=== PATIENT | male | born 2000 | race Caucasian/White ===

== ENCOUNTER 2020-06-12 16:19 | Emergency (ER) | payer OTHER ==
[~2020-06-12] VITALS: Ht 188 cm; Wt 81.8 kg
[2020-06-12] MEDS ORDERED: IBUPROFEN 600MG TAB PO ONE (16:45)
--- NOTE | 2020-06-12 18:02 | REP ---
INDICATION: trauma COMPARISON: None. TECHNIQUE: Frontal view of the pelvis with neutral and frog lateral views of the right hip. FINDINGS: Pelvis and hips are symmetric and intact. No acute fracture or dislocation. Surrounding soft tissues are unremarkable. No subcutaneous emphysema or foreign body. IMPRESSION: Normal pelvis and right hip series. No acute fracture or dislocation. <Electronically signed by Geoff Arambula > 06/12/20 [id number]
--- NOTE | 2020-06-12 18:02 | REP ---
INDICATION: trauma COMPARISON: None. TECHNIQUE: AP, lateral, bilateral oblique, and coned-down views of the lumbar spine. FINDINGS: Alignment and lordosis maintained. Vertebral bodies are intact. Disc spaces are relatively normal/age-appropriate. No acute fracture/compression injury or subluxation. No obvious spondylolysis or spondylolisthesis.. IMPRESSION: Normal Lumbosacral Spine series. No acute fracture/compression injury or subluxation. <Electronically signed by Geoff Arambula > 06/12/20 [id number]
[2020-06-12 18:45] VITALS: BP 149/74
== END 2020-06-12 18:48 | disposition home or self-care (01) ==
LOC: M ED 16:19 → EDBD 16:19 → M ED 18:48
DX: S70.01XA Contusion of right hip, initial encounter (principal); W01.0XXA Fall on same level from slipping, tripping and stumbling without subsequent striking against object, initial encounter; Y92.89 Other specified places as the place of occurrence of the external cause; Y99.0 Civilian activity done for income or pay; F17.210 Nicotine dependence, cigarettes, uncomplicated

== ENCOUNTER 2021-09-24 12:51 | Emergency (ER) | payer OTHER ==
[~2021-09-24] VITALS: Ht 182.9 cm; Wt 79.9 kg
[2021-09-24] MEDS: KETOROLAC 60MG 2ML VIAL IM ONE ×2 (18:50→18:56)
[2021-09-24 22:09] VITALS: BP 138/75
== END 2021-09-24 22:10 | disposition home or self-care (01) ==
LOC: M ED 12:51
DX: M54.50 Low back pain, unspecified (principal); F17.290 Nicotine dependence, other tobacco product, uncomplicated

== ENCOUNTER → 2022-01-23 | Outpatient (CLI) | payer OTHER ==
[~2022-01-23] MED LIST: ISOVUE-300 61% 50ML VIAL As Ordered ONE; LIDOCAINE 1% MDV 20ML VIAL As Ordered ONE; TRIAMCINOLONE ACETONIDE SUSP 40 MG/ML VIAL (J3301) As Ordered ONE
== END ==
LOC: M RAD 12:32
PROVIDERS: ATTEND Physician Assistant Surgical
DX: S73.121A Ischiocapsular ligament sprain of right hip, initial encounter (principal); S73.122A Ischiocapsular ligament sprain of left hip, initial encounter; X58.XXXA Exposure to other specified factors, initial encounter; Y92.9 Unspecified place or not applicable
CPT/HCPCS: 20610; 76000; J3301; Q9967

== ENCOUNTER 2024-08-07 18:48 | Emergency (ER) | payer OTHER ==
[~2024-08-07] VITALS: Ht 188 cm; Wt 79.6 kg
[2024-08-07] MEDS ORDERED: METH-1165 PO (20:41)
[2024-08-07] MEDS ORDERED: NAPR-837 PO (20:41)
[2024-08-07 22:56] VITALS: BP 128/59; TEMP 97.4; O2SAT 100
== END 2024-08-07 22:58 | disposition home or self-care (01) ==
LOC: M ED 18:48
DX: S43.401A Unspecified sprain of right shoulder joint, initial encounter (principal); X50.0XXA Overexertion from strenuous movement or load, initial encounter; Y92.89 Other specified places as the place of occurrence of the external cause; Y93.89 Activity, other specified; Y99.1 Military activity; Z79.1 Long term (current) use of non-steroidal anti-inflammatories (NSAID); Z79.899 Other long term (current) drug therapy